=== PATIENT | female | born 1975 | race Caucasian/White ===

== ENCOUNTER 2018-05-03 18:02 | Emergency (ER) | payer SELFPAY ==
[~2018-05-03] VITALS: Ht 167.6 cm; Wt 90.9 kg
[2018-05-03 18:12] VITALS: Ht 167.6 cm; Wt 90.9 kg
[2018-05-03] MEDS ORDERED: NEURONTIN600 MG PO (18:14)
[2018-05-03] MEDS ORDERED: OMEPRAZOLE20 M1 PO (18:14)
[2018-05-03] MEDS ORDERED: CIPRO500 MG PO (18:58)
[2018-05-03] MEDS ORDERED: MUPIROCIN22 GM TOPICAL (18:58)
[2018-05-03 19:19] LABS: APPEARANCE CLEAR (CLEAR); BILIRUBIN NEGATIVE (NEGATIVE); COLOR YELLOW (YELLOW); GLUCOSE NEGATIVE (NEGATIVE); KETONE NEGATIVE (NEGATIVE); NITRITE NEGATIVE (NEGATIVE); PROTEIN NEGATIVE (NEGATIVE); UROBILINOGEN NORMAL (NORMAL)
[2018-05-03 19:20] LABS: BACTERIA FEW /hpf (NONE SEEN); EPITHELIAL CELLS 0-5 /hpf (0-5); RED CELLS - URINE 0-5 /hpf (0-5); WHITE CELLS - URINE 0-5 /hpf (0-5)
[2018-05-03 19:55] VITALS: BP 145/81
== END 2018-05-03 19:56 | disposition home or self-care (01) ==
LOC: D.ER 18:02
PROVIDERS: Emergency Medicine
DX: M54.5 Low back pain (principal); F17.200 Nicotine dependence, unspecified, uncomplicated